=== PATIENT | male | born 1965 | race Caucasian/White ===

== ENCOUNTER 2023-10-18 06:30 | Day surgery (SDC) | payer BC, SELFPAY ==
[2023-10-02 12:58] VITALS: BMI 31.4
--- NOTE | 2023-10-11 12:40 | PTCARENOTE ---
Pt expressing concern re: receiving general anesthesia. Pt states has a severe episode of anxiety s/p previous sx. Pt states will call the office to discuss the concern w/ Dr. Graham. Brianda Barahona notified and requested to contact pt regarding
the concern.
[2023-10-18] VITALS (11 sets, daily range): BP systolic 127–155; BP diastolic 91–109; BMI 31.4
[2023-10-18] MEDS: NORMOSOL-R 1000 IV (09:05)
[2023-10-18] MEDS: TYLENOL 1000 MG PO (09:05)
--- NOTE | 2023-10-18 09:55 | W.SUR.PREOP ---
Pre-Operative Surgical Note
-
I have examined this patient prior to the performance of the scheduled procedure.
The patient's condition is unchanged from the time of the current History and
Physical and the patient is able to undergo the scheduled procedure.
--- NOTE | 2023-10-18 12:02 | W.IMMPOSTOP ---
Surgical Immed Post Op Note
-
Primary Surgeon: Scott Graham MD
Assisting Surgeon: None
Pre-op Diagnosis: Left spigelian hernia
Post-op Diagnosis: Same
Procedure Performed: Robotic left spigelian hernia repair with mesh. (VANESSA approach)
Anesthesia Type: General
Specimen / Cultures: Left cord lipoma
Estimated Blood Loss: 3 cc
Complications: None
Operative Findings: Small 1 cm spigelian hernia containing preperitoneal fat at the confluence of the left arcuate and semilunar lines. No direct, indirect or femoral defects however a small cord lipoma was noted, reduced and removed. The defect
was closed with a 2-0 PDS and reinforced with an extra-large left Bard 3D max.
--- NOTE | 2023-10-18 12:05 | OR.RPT ---
Operative Report
Operative Report
Patient Name: Alon Salvador
: 1965
Date of Operation: 10/18/2023
Preoperative Diagnosis: Reducible left spigelian hernia
Postoperative Diagnosis: Same
Procedure(s):
Robotic left spigelian Hernia Repair with mesh, (VANESSA approach)
Surgeon(s):
Dr. Graham
Records Management Associate(s):
DEEPIKA Scales
Anesthesia: General
Estimated Blood Loss: 3 cc
Urine Output: None
Drains/Lines/Implants: XLarge 3D Max Bard mid weight mesh
Specimens: Left cord lipoma
Indication for surgery: The patient has a history of left lower quadrant abdominal pain and found to have a bulge/impulse in the typical region of a spigelian hernia. He was also noted to have a impulse in the right groin. Following review of
therapeutic options they has elected to undergo a minimally invasive repair of a spigelian hernia and possible right inguinal hernia repair.
Operative Findings: Small 1 cm spigelian hernia containing preperitoneal fat at the confluence of the left arcuate and semilunar lines. No direct, indirect or femoral defects however a small cord lipoma was noted, reduced and removed. The defect
was closed with a 2-0 PDS and reinforced with an extra-large left Bard 3D max.
Details of the operation:
The patient was brought to the Operating Room and placed in the supine position with the arms tucked. IV antibiotics were infused and Venodyne stockings placed. Following uneventful induction of general endotracheal anesthesia, an orogastric tube
were placed. The abdomen was prepped and draped in the usual sterile fashion. The abdomen was entered using a Veress technique which required 2 pass(es), pneumoperitoneum to 15 mmHg was obtained without difficulty. A 8mm trochar was passed through
the abdominal wall roughly 28 cm cephalad to the inguinal canal. We then confirmed that no inadvertent injury was made while passing the trocar or Veress needle. We then placed two additional 8 mm ports in the left upper and right upper quadrants.
We then docked the robot with a Prograsper in the left hand port and monopolar scissors in the right. A small weakness was noted in the left abdominal wall consistent with a spigelian hernia. No other hernia defects were noted bilaterally. We
then began by creating a flap roughly 5 cm above the defect. The peritoneum however was very thin, so medially we did jump into the retrorectus space which we took down to the bladder and the space of Retzius, we then took down the intervening
fascia to connect this to the space of Bogros. Staying onto the peritoneum we were able to dissect it off of the underlying spermatic cord and testicular vessels, taking care to preserve them. Medially we identified the midline pubis as well as
Ishmael's ligament and ensured to dissect 2 cm below the pubic rim over the bladder. After exposure of the entire myopectineal orifice we identified and reduced a small cord lipoma which was reduced and resected. We then inserted an extra-large 3D
max mid weight mesh as well as her sutures. The spigelian defect was closed with a 2-0 PDS suture in a horizontal manner. We then position the extra-large left Bard 3D max mesh. Unfortunately due to the orientation we were not able to extend the
medial aspect down to Ishmael's but did cover the indirect space as well as the spigelian defect well with good overlap. The flap was then closed with a running 2-0 PDS barbed suture. During the closure of the flap an Angiocath was inserted and 20
cc of quarter percent Marcaine was instilled. The area in the flap cavity was then evacuated of air confirming that the mesh was flush and there were no folds. No mesh was exposed. All needles and instruments were then removed and the robot was
undocked. The abdomen was then desufflated, and pneumoperitoneum evacuated. All skin sites were then closed with 4-0 Monocryl followed by Dermabond. Counts were correct and overall, the patient tolerated the procedure well and was taken to the
Recovery Room postoperatively in stable condition.
I was the attending physician and performed the procedure with assistance of the [employer] above. I was present for all portions of the case, except for skin closure.
Scott Graham MD
[2023-10-18] MEDS: DILAUDID 0.5 MG IV (12:23)
== END 2023-10-18 14:24 | disposition home or self-care (01) ==
LOC: SDS 06:30
PROVIDERS: ATTENDING PHYSICIAN Surgery; FAMILY PHYSICIAN Family Medicine
DX: K43.9 Ventral hernia without obstruction or gangrene (principal); D17.6 Benign lipomatous neoplasm of spermatic cord
CPT/HCPCS: 49591; 88304; 36415; 93005; C1781

== ENCOUNTER 2025-01-04 11:14 | Emergency (ER) | payer BC, SELFPAY ==
[2025-01-04 11:18] VITALS: BP 143/104
[2025-01-04 11:41] VITALS: BMI 32.1
--- NOTE | 2025-01-04 12:44 | ED.GENMED ---
History of Present Illness
General
Chief Complaint: Cardiac Symptoms
Time Seen by Provider: 01/04/25 12:02
History of Present Illness
History of Present Illness:
51-year-old male presents to the emergency department for evaluation of a brief episode of 'gas pain' to the epigastrium that occurred about 2 hours ago. The patient states that he had [employer] breakfast and coffee shortly before this, he was
performing shoulder exercises and attempted to sit up from a supine position on the couch when he felt a brief episode of discomfort to the epigastrium and lower chest that acutely resolved. He denies any current chest pain or dyspnea. No recent
fevers or chills. He is quite physically active and is able to exert himself on a daily basis without any chest pain or shortness of breath. He has no family history of coronary disease and no significant coronary risk factors. Non-smoker.
Past History
Past History
ED Past Medical History: Other
ED Past Surgical History: Orthopedic
Social History
Tobacco: Non-smoker
Alcohol: Occasional
Drug: None
Personal:
Living: with family
Employment: Employed
Family History
Family History: Other
Review of Systems
Review of Systems
Allergies reviewed?: Yes
All Other Systems: ROS reviewed and negative except as documented in HPI and ROS
Phy Exam
Physical Exam
Physical Exam:
GEN: Well appearing, NAD, WDWN
HEENT: Oral mucosa moist, no scleral icterus
Cardiac: Regular rate and rhythm, no murmurs
Lung: No respiratory distress, no tachypnea, lungs clear to auscultation bilaterally
MSK: No gross deformity or injuries
Skin: Good color, no pallor or jaundice, no rashes
Neuro: AO x3, moves all extremities freely
Psych: Calm, cooperative
Course
Orders/Labs/Results
Orders:
Orders
01/04/25 11:18
EKG [Electrocardiogram (*1)] Urgent
Reason for Study: Chest Pain
EKG- Treatment ONCE
Vital Signs
Initial and Last Documented VS:
Initial Vital Signs
Temp Pulse Resp BP Pulse Ox
98.3 F 115 17 143/104 99
01/04/25 11:18 01/04/25 11:18 01/04/25 11:18 01/04/25 11:18 01/04/25 11:18
Last Documented Vital Signs
Temp Pulse Resp BP Pulse Ox
98.3 F 89 14 143/104 96
01/04/25 11:18 01/04/25 12:15 01/04/25 12:15 01/04/25 11:18 01/04/25 12:48
MDM/Problems Addressed
MDM/Problems Addressed:
No concern for ACS at this time given the brief episodic epigastric discomfort that was most likely GERD/indigestion. He has no cardiac risk factors. Discussed primary care follow-up for coronary calcium scoring should he be interested in this
Comment
Comment:
EKG independently interpreted by me shows normal sinus rhythm with no ST changes concerning for ischemia
*Pulse Oximetry
SaO2: 96
Oxygen Mode of Delivery: Room air
Patient hypoxic: no
*Critical Care Note
Total Time (30-74mins, 75-104mins- exclusive of procedures): Not Applicable
ED Attending Note
-
Portions of this chart may have been created with voice recognition software.� Occasional wrong word or��sound alike� substitutions may have occurred due to the inherent limitations of voice recognition software.
Discharge Plan
Departure
Patient Disposition: Home (Routine Discharge)
Date of Disposition: 01/04/25
Time of Disposition: 12:45
Patient with high blood pressure during this ER visit?: No
Discharge Problem:
Indigestion
Instructions: Acid reflux and GERD in adults - ED (DC)
Prescriptions:
No Action
multivitamin Tablet
1 tab PO DAILY
cetirizine [Zyrtec] 10 mg Tablet
10 mg PO DAILY
cholecalciferol (vitamin D3) [Vitamin D3] 25 mcg (1,000 unit) Tablet
25 mcg PO DAILY
acetaminophen [acetaminophen] 325 mg tablet
650 mg PO Q6HPRN PRN (Reason: mild pain) Qty: 14 0RF
tramadol 50 mg tablet
25 mg PO Q6HPRN PRN (Reason: severe pain/breakthrough pain) Qty: 8 0RF
ibuprofen 600 mg tablet
600 mg PO Q6H PRN (Reason: pain) Qty: 14 0RF
Referrals:
Patricio Elaine MD [Active, Cardiology]
Srinivasa Cook DO [Family Provider, Family Practice]
Activity Restrictions/Additional Instructions:
For further cardiac risk screening please consider a coronary calcium score, this test can be ordered by your primary care physician
Interventions
Interventions:
*Risk Screen - Suicide Last Done: 01/04/25 11:19
*General Assessment Last Done: 01/04/25 11:19
*Neglect/Abuse Screening Last Done: 01/04/25 11:19
*ED COVID-19 Vaccine History Last Done: 01/04/25 11:19
*Nursing Disposition Last Done: 01/04/25 12:51
ED- Pulmonary Assessment Last Done: 01/04/25 11:47
ED- Cardiac Assessment Last Done: 01/04/25 11:42
Discharge Date and Time
Discharge Date/Time: 01/04/25 12:52
Print Language: BELARUSIAN
== END 2025-01-04 12:52 | disposition home or self-care (01) ==
LOC: EMR 11:14
PROVIDERS: EMERGENCY PHYSICIAN Emergency Medicine; FAMILY PHYSICIAN Family Medicine
DX: K30 Functional dyspepsia (principal)
CPT/HCPCS: 99283; 93005